=== PATIENT | male | born 1985 | race Caucasian/White ===

== ENCOUNTER 2017-02-23 13:00 | Emergency (ER) | payer OTHER ==
[2017-02-23 13:07] VITALS: TEMP 99.5; BMI 22.4
[2017-02-23] MEDS ORDERED: FAMOTIDINE 20 MG/50 ML IVPB 50 ML IVPB ONE ×2 (13:09→13:15)
[2017-02-23] MEDS ORDERED: ACETAMINOPHEN 325 MG TABLET (FP) PO ONE (13:09)
[2017-02-23] MEDS ORDERED: MAG HYDROX/AL HYDROX/SIMETH 30 ML UNIT-DOSE CUP PO ONE (13:09)
[2017-02-23] MEDS ORDERED: SODIUM CHLORIDE 2,000 ML IV STA (13:09)
[2017-02-23] MEDS ORDERED: ONDANSETRON 4 MG/2 ML VIAL IVPB ONE (13:09)
[2017-02-23] MEDS ORDERED: LOPERAMIDE HCL 2 MG CAPSULE PO ONE (13:09)
[2017-02-23] MEDS ORDERED: LOPERAMIDE HCL 2 MG CAPSULE ONE (13:15)
[2017-02-23] MEDS ORDERED: ACETAMINOPHEN 325 MG TABLET (FP) ONE (13:15)
[2017-02-23] MEDS ORDERED: MAG HYDROX/AL HYDROX/SIMETH 30 ML UNIT-DOSE CUP ONE (13:16)
[2017-02-23] MEDS ORDERED: ONDANSETRON 4 MG/2 ML VIAL ONE (13:16)
--- NOTE | 2017-02-23 13:18 | PDOC ---
History of Present Illness - General Chief Complaint: Diarrhea Stated Complaint: NAUSEA & DIARRHEA Time Seen by Provider: 02/23/17 13:02 History Source: Patient Exam Limitations: No Limitations - History of Present Illness Initial Comments: 02/23/17 13:15 31-year-old male with past medical history of asthma presents with multiple episodes of diarrhea, nausea and abdominal cramping. 2 days ago, patient went with his significant other and ate at a [employer] restaurant and had steak. Both of them have developed abdominal cramping and nausea. However, the patient's significant other improved. However, the patient continue have multiple episodes of loose stooling up to 10-20 times per day. Reports he has poor appetite. Also reports tactile fevers and nausea at home. States he has some left upper quadrant discomfort. Has now become lightheaded and dizzy because of dehydration. Past History - Past Medical History Allergies/Adverse Reactions: Allergies Allergy/AdvReac Type Severity Reaction Status Date / Time No Known Allergies Allergy Verified 10/31/16 13:35 Home Medications: Ambulatory Orders Albuterol 0.083% Nebulizer Florecita [Ventolin 0.083% Nebulizer Soln -] 1 neb NEB Q4H PRN #30 vial 10/31/16 Albuterol Sulfate Inhaler - [Ventolin HFA Inhaler -] 1 - 2 inh PO Q4H PRN #1 inhaler 02/23/17 Loperamide HCl [Imodium -] 2 mg PO Q8H PRN #21 capsule 02/23/17 Mag Hydrox/Al Hydrox/Simeth [Mylanta Suspension -] 30 ml PO Q6H PRN #1 bottle Ondansetron HCl [Zofran] 4 mg PO Q6H PRN #20 tablet 02/23/17 Asthma: Yes - Psycho/Social/Smoking Cessation Hx Suicidal Ideation: No Smoking History: Never smoked Hx Alcohol Use: Yes (OCCASIONAL) Drug/Substance Use Hx: No Substance Use Type: None Review of Systems - Review of Systems Able to Perform ROS?: Yes Comments:: 02/23/17 13:16 GENERAL/CONSTITUTIONAL: No weakness. +tactile fevers and lightheadedness HEAD, EYES, EARS, NOSE AND THROAT: No change in vision. No ear pain or discharge. No sore throat. CARDIOVASCULAR: No chest pain or shortness of breath. RESPIRATORY: No cough, wheezing, or hemoptysis. GASTROINTESTINAL: +abdominal cramping, diarrhea, loose stools, nausea. GENITOURINARY: No dysuria, frequency, or change in urination. MUSCULOSKELETAL: No joint or muscle swelling or pain. No neck or back pain. SKIN: No rash NEUROLOGIC: No headache, vertigo, loss of consciousness, or change in strength/ sensation. ENDOCRINE: No increased thirst. No abnormal weight change. HEMATOLOGIC/LYMPHATIC: No anemia, easy bleeding, or history of blood clots. ALLERGIC/IMMUNOLOGIC: No hives or skin allergy. *Physical Exam - Vital Signs Last Vital Signs Temp Pulse Resp BP Pulse Ox 99.5 F 110 H 16 138/83 98 02/23/17 13:02/23/17 13:02/23/17 13:02/23/17 13:02/23/17 13:01 - Physical Exam Comments: 02/23/17 13:16 GENERAL: Awake, alert, and fully oriented, in no acute distress. +Dry mucous membranes HEAD: No signs of trauma EYES: PERRLA, EOMI, sclera anicteric, conjunctiva clear ENT: Auricles normal inspection, hearing grossly normal, nares patent, oropharynx clear without exudates. NECK: Normal ROM, supple, no lymphadenopathy, JVD, or masses LUNGS: Breath sounds equal, clear to auscultation bilaterally. No wheezes, and no crackles HEART: Regular rate and rhythm, normal S1 and S2, no murmurs, rubs or gallops ABDOMEN: +mild TTP LUQ. Soft. No guarding, no rebound. No masses EXTREMITIES: Normal range of motion, no edema. No clubbing or cyanosis. No cords, erythema, or tenderness NEUROLOGICAL: Cranial nerves II through XII grossly intact. Normal speech, normal gait SKIN: Warm, Dry, normal turgor, no rashes or lesions noted. ED Treatment Course - LABORATORY CBC & Chemistry Diagram: 02/23/17 13:10 02/23/17 13:10 Medical Decision Making - Medical Decision Making 02/23/17 13:17 Vital Signs Temp Pulse Resp BP Pulse Ox 99.5 F 110 H 16 138/83 98 02/23/17 13:01 02/23/17 13:01 02/23/17 13:01 02/23/17 13:01 02/23/17 13:01 Pt's history and physical suggests food poisoning. Will obtain labs, treat symptoms, IVF, and reassess. 02/23/17 14:11 CBC, BMP 02/23/17 13:10 02/23/17 13:10 CMP Sodium 136 mmol/L (136-145) 02/23/17 13:10 Potassium 4.0 mmol/L (3.5-5.1) 02/23/17 13:10 Chloride 104 mmol/L (98-107) 02/23/17 13:10 Carbon Dioxide 24 mmol/L (22-28) 02/23/17 13:10 Anion Gap 8 (8-16) 02/23/17 13:10 BUN 13 mg/dl (7-18) 02/23/17 13:10 Creatinine 1.0 mg/dl (0.6-1.3) 02/23/17 13:10 Creat Clearance w eGFR > 60 (>60) 02/23/17 13:10 Random Glucose 108 mg/dl (74-106) H 02/23/17 13:10 Calcium 9.6 mg/dl (8.4-10.2) 02/23/17 13:10 Total Bilirubin 1.0 mg/dl (0.2-1.0) 02/23/17 13:10 AST 21 U/L (10-42) 02/23/17 13:10 ALT 17 U/L (10-40) 02/23/17 13:10 Alkaline Phosphatase 65 U/L (32-92) 02/23/17 13:10 Total Protein 7.8 g/dl (6.4-8.3) 02/23/17 13:10 Albumin 4.4 g/dl (3.5-5.0) 02/23/17 13:10 Lipase 24 U/L (22-51) 02/23/17 13:10 Patient reports feeling better after the medications. This is likely food poisoning. Supportive care and follow-up with primary care physician. Patient is requesting a refill of his albuterol inhaler. We will send a prescription. I discussed the physical exam findings, ancillary test results and final diagnoses with the patient. I answered all of the patient's questions. The patient was satisfied with the care received and felt comfortable with the discharge plan and treatment plan. The patient will call their primary care physician within 24 hours to arrange follow-up and will return to the Emergency Department with any new, persistant or worsening symptoms. *DC/Admit/Observation/Transfer Diagnosis at time of Disposition: Food poisoning Qualifiers: Encounter type: initial encounter Injury intent: accidental or unintentional Qualified Code(s): T62.91XA - Toxic effect of unspecified noxious substance eaten as food, accidental (unintentional), initial encounter - Discharge Dispostion Disposition: HOME Condition at time of disposition: Improved Admit: No - Prescriptions Prescriptions: Loperamide HCl [Imodium -] 2 mg PO Q8H PRN #21 capsule PRN Reason: Diarrhea Mag Hydrox/Al Hydrox/Simeth [Mylanta Suspension -] 30 ml PO Q6H PRN #1 bottle PRN Reason: Abdominal Pain Albuterol Sulfate Inhaler - [Ventolin HFA Inhaler -] 1 - 2 inh PO Q4H PRN #1 inhaler PRN Reason: Wheezing Ondansetron HCl [Zofran] 4 mg PO Q6H PRN #20 tablet PRN Reason: Nausea - Referrals Referrals: Karen Willams [Primary Care Provider] - - Patient Instructions Printed Discharge Instructions: DI for Food Poisoning Additional Instructions: Please drink plenty fluids and rest. Take the medications as prescribed as needed for symptom control. 4 mg of Zofran every 6 hours needed for nausea. 30 mL of Maalox every 6 hours as needed for abdominal pain. 2 mg of Imodium every 8 hours as needed for diarrhea. He may take several days before your symptoms improve.Start with fluids and then gradually move to solid foods. - Post Discharge Activity Work/School Note: Back to Work
[2017-02-23 13:25] LABS: EOSINOPHIL 0.1 % (0-4.5); MCH 29.9 pg (25.7-33.7); MEAN CELL VOLUME 85.4 fl (80-96); MEAN PLT VOLUME 8.5 fl (7.5-11.1); PLATELET COUNT 218 K/MM3 (134-434); RDW 12.1 % (11.9-15.9); WHITE BLOOD COUNT 9.5 K/mm3 (4.0-10.8)
[2017-02-23 13:38] LABS: ALBUMIN 4.4 g/dl (3.5-5.0); ALK PHOS 65 U/L (32-92); ANION GAP 8 (8-16); CALCIUM 9.6 mg/dl (8.4-10.2); CO2 24 mmol/L (22-28); COCKROFT - GAULT 115.38; GLUCOSE,RANDOM 108 mg/dl (74-106); SGOT/AST 21 U/L (10-42); SGPT/ALT 17 U/L (10-40); TOT PROT 7.8 g/dl (6.4-8.3)
[2017-02-23] MEDS ORDERED: METOCLOPRAMIDE HCL INJECTION 10 MG/2 ML VIAL IVPB ONE (14:11)
[2017-02-23 14:46] VITALS: BP 105/51; PULSE 92
== END 2017-02-23 14:54 | disposition home or self-care (01) ==
LOC: FER 13:00
PROC: 3E033GC Introduction of Other Therapeutic Substance into Peripheral Vein, Percutaneous Approach (ICD-10-PCS; principal; 2017-02-23)
PROC: 3E0337Z Introduction of Electrolytic and Water Balance Substance into Peripheral Vein, Percutaneous Approach (ICD-10-PCS; 2017-02-23)
DX: T62.91XA Toxic effect of unspecified noxious substance eaten as food, accidental (unintentional), initial encounter (principal); J45.909 Unspecified asthma, uncomplicated
CPT/HCPCS: 36415; 80053; 83690; 85025; 96361; 96365; 96375; 99283-25